=== PATIENT | male | born 1980 | race Caucasian/White ===

== ENCOUNTER 2018-05-01 11:53 | Emergency (ER) | payer OTHER ==
[2018-05-01] MEDS: LIDOCAINE 2% (MDV) 20 ML INJ INJ (12:30)
== END 2018-05-01 13:38 | disposition home or self-care (01) ==
LOC: FTE 11:53
DX: S61.012A Laceration without foreign body of left thumb without damage to nail, initial encounter (principal); W27.0XXA Contact with workbench tool, initial encounter; Y92.9 Unspecified place or not applicable; Z87.891 Personal history of nicotine dependence
CPT/HCPCS: 12002; 73130-LT; 99283-25

== ENCOUNTER 2019-02-17 15:40 | Emergency (ER) | payer OTHER ==
[2019-02-17] MEDS: KETOROLAC 30 MG INJ IM (21:26)
== END 2019-02-17 22:35 | disposition home or self-care (01) ==
LOC: FTE 15:40
DX: S99.922A Unspecified injury of left foot, initial encounter (principal); F17.210 Nicotine dependence, cigarettes, uncomplicated; X58.XXXA Exposure to other specified factors, initial encounter; Y92.9 Unspecified place or not applicable
CPT/HCPCS: 73630; 73630-LT; 96372; 99284-25

== ENCOUNTER 2019-03-04 21:09 | Emergency (ER) | payer OTHER | END 2019-03-04 23:14 | disposition home or self-care (01) | LOC: FTE 23:14 | DX: M79.672 Pain in left foot (principal); F17.210 Nicotine dependence, cigarettes, uncomplicated | CPT/HCPCS: 99282; Z7502 ==

== ENCOUNTER 2019-06-03 11:46 | Emergency (ER) | payer OTHER | END 2019-06-03 15:23 | disposition home or self-care (01) | LOC: E/R 15:23 | DX: R00.2 Palpitations (principal); R91.1 Solitary pulmonary nodule; Z87.891 Personal history of nicotine dependence | CPT/HCPCS: 71045; 93005; 99284-25 ==